=== PATIENT | male | born 1965 | race Caucasian/White ===

== ENCOUNTER 2020-01-28 11:30 | Outpatient (REF) | payer OTHER, SELFPAY ==
--- NOTE | 2020-01-28 11:39 | XR_ITS ---
EXAMINATION: XR CERVICAL SPINE CLINICAL INFORMATION: Cervicalgia COMPARISON: None TECHNIQUE: 3 views of the cervical spine were obtained. FINDINGS: There are no prevertebral soft tissue or bony abnormalities demonstrated. No compression fractures or subluxations are identified. Alignment is maintained at the atlanto-axial articulation. The disc spaces are preserved. No endplate changes are seen. The prevertebral soft tissues are normal. The lung apices are clear. XR/XR cervical spine 3V IMPRESSION: Unremarkable cervical spine radiographs.
== END 2020-01-28 11:31 | disposition home or self-care (01) ==
LOC: HO.XRAY 11:30
PROVIDERS: PCP Internal Medicine; Visit Provider Internal Medicine
DX: M54.2 Cervicalgia (principal)
CPT/HCPCS: 72040

== ENCOUNTER 2021-02-10 10:54 | Outpatient (REF) | payer OTHER, SELFPAY ==
--- NOTE | ~2021-02-10 | MR_ITS ---
EXAMINATION: MR BRAIN WITHOUT AND WITH CONTRAST CLINICAL INFORMATION: Transient visual loss. Tinnitus. COMPARISON: None. TECHNIQUE: Multiplanar, multisequential imaging of the brain was performed before and after the intravenous administration of 10 mL of Gadavist. Limited study with motion artifacts. FINDINGS: No diffusion abnormalities are identified to suggest an acute infarct. The ventricles are normal in size. No mass effect or midline shift is seen. No brain parenchymal signal abnormality is noted. No extra-axial fluid collections are seen. The brainstem and cerebellum are normal. There is no abnormal parenchymal or leptomeningeal enhancement. The gradient refocused acquisition demonstrates no pathologic magnetic susceptibility artifact to indicate underlying acute or chronic blood products. The craniovertebral junction, marrow signal, and midline structures are normal. The major intracranial flow voids at the level of the viejas of [place] are preserved. The dural venous sinus flow voids are maintained. The mastoid air cells are well aerated. Mild mucosal thickening in the ethmoid air cells. Small retention cyst and mild mucosal thickening in the maxillary antra. Small retention cyst in the right sphenoid sinus. MR/MR head/brain wo/w con IMPRESSION: No acute process. Normal MRI of the brain.
== END 2021-02-10 10:55 | disposition home or self-care (01) ==
LOC: HO.MRI 10:54
PROVIDERS: Visit Provider Physician Assistant
DX: H53.123 Transient visual loss, bilateral (principal)
CPT/HCPCS: 70553; A9585

== ENCOUNTER 2021-03-07 13:02 | Outpatient (REF) | payer OTHER, SELFPAY ==
--- NOTE | ~2021-03-07 | US_ITS ---
EXAMINATION: US EXTRACRANIAL CAROTID DUPLEX, BILATERAL CLINICAL INFORMATION: Indication visual loss COMPARISON: None TECHNIQUE: Real-time ultrasound and Doppler techniques (integrating B-mode 2-D vascular images, Doppler spectral analysis and color-flow Doppler imaging) were utilized to interrogate the extracranial carotid arteries, the vertebral arteries and proximal subclavian arteries bilaterally. The degree of stenosis is determined by criteria similar to NASCET. FINDINGS: Right Side: 1. There is echogenic atherosclerotic plaque seen in the bifurcation/proximal ICA region. 2. The common carotid artery PSV proximally is 120 cm/s and distally 86.6 cm/s. 3. The proximal internal carotid artery velocities are 57 cm/s systolic and 18.1 cm/s diastolic. 4. The proximal external carotid artery PSV is 117 cm/s. 5. The vertebral artery shows antegrade flow. Left Side: 1. There is echogenic atherosclerotic plaque seen in the bifurcation/proximal ICA region. 2. The common carotid artery PSV proximally is 117 cm/s and distally 117 cm/s. 3. The proximal internal carotid artery velocities are 82.1 cm/s systolic and 24.6 cm/s diastolic. 4. The proximal external carotid artery PSV is 109 cm/s. 5. The vertebral artery shows antegrade flow. US/US carotid duplex BI IMPRESSION: 1. RIGHT: Minimal, non-hemodynamically significant stenosis of the proximal right internal carotid artery corresponding to a 0-49% stenosis by velocity criteria. 2. LEFT: Minimal, non-hemodynamically significant stenosis of the proximal left internal carotid artery corresponding to a 0-49% stenosis by velocity criteria.
== END 2021-03-07 13:03 | disposition home or self-care (01) ==
LOC: HO.HMGCX 13:02
PROVIDERS: PCP Internal Medicine; Visit Provider Physician Assistant
DX: H53.123 Transient visual loss, bilateral (principal)
CPT/HCPCS: 93880

== ENCOUNTER 2021-09-18 11:19 | Outpatient (REF) | payer OTHER, SELFPAY ==
[2021-09-18 13:38] LABS: Estimated Average Glucose 108 mg/dL; Hemoglobin A1C 150.5347 umol/L; Hemoglobin A1c % 5.4 %
== END 2021-09-18 11:20 | disposition home or self-care (01) ==
LOC: HO.MANLDS 11:19
PROVIDERS: Internal Medicine; Visit Provider Dermatology Procedural Dermatology
DX: R73.01 Impaired fasting glucose (principal)
CPT/HCPCS: 36415; 83036

== ENCOUNTER 2023-09-25 09:22 | Outpatient (REF) | payer OTHER, SELFPAY ==
[2023-09-25 09:34] LABS: MANUAL DIFF FLAG NO
[2023-09-25 09:50] LABS: Basophils Percent Auto 0.5 % (0-2); Eosinophils Absolute Auto 0.3 X10*3/uL (0.0-0.4); Eosinophils Percent Auto 7.3 % (0-4); Hematocrit 45.8 % (42.0-52.0); Hemoglobin 15.1 g/dl (14.0-18.0); Imm Gran Abs Auto 0.02 X10*3/uL (0.00-0.03); Imm Gran Pct Auto 0.5 % (0.0-0.4); Lymphocytes Absolute Auto 1.2 X10*3/uL (1.2-4.9); Lymphocytes Percent Auto 29.3 % (20-40); Mean Platelet Volume 10.9 fL (9.4-12.4); Monocytes Absolute Auto 0.2 X10*3/uL (0.1-1.2); Monocytes Percent Auto 5.8 % (2-11); Neutrophils Absolute Auto 2.3 x10*3/uL (2.0-8.3); Neutrophils Percent Auto 56.6 % (45-73); Platelet Count 187 X10*3/uL (160-400); Red Blood Count 4.72 X10*6/uL (4.60-5.80); Red Cell Distribution Width 13.8 % (11.0-16.0)
[2023-09-25 11:03] LABS: Alanine Aminotransferase 24 U/L (0-40); Albumin Level 4.2 g/dL (3.5-5.0); Alkaline Phosphatase 100 U/L (39-117); Anion Gap 11 (12-20); Aspartate Amino Transferase 21 U/L (5-37); Bilirubin Total 0.4 mg/dL (0.0-1.0); Blood Urea Nitrogen 13 mg/dL (9-16); Calcium 9.7 mg/dL (8.4-10.2); Carbon Dioxide 24 mmol/L (22-29); Chloride 115 mmol/L (96-108); Cholesterol 165 mg/dL (<200); Estimated Glomerular Filt Rate > 60; Glucose Random 108 mg/dL (60-115); HDL Cholesterol 56 mg/dL (>40); LDL Cholesterol Calculated 94 mg/dL (<100); Potassium 5.6 mmol/L (3.3-5.1); Sodium 144 mmol/L (135-145); Total Protein 6.7 g/dL (6.5-8.0); Triglycerides 76 mg/dL (<150)
[2023-09-25 14:17] LABS: Prostate Specific Antigen 0.35 ng/mL (<0.05-4.0)
== END 2023-09-25 09:23 | disposition home or self-care (01) ==
LOC: HO.LAB 09:22
PROVIDERS: PCP Internal Medicine; Visit Provider Internal Medicine
DX: I10 Essential (primary) hypertension (principal); Z12.5 Encounter for screening for malignant neoplasm of prostate
CPT/HCPCS: 36415; 80053; 80061; 84153; 85025